=== PATIENT | male | born 2000 | race Caucasian/White ===

== ENCOUNTER 2020-10-16 00:09 | Emergency (ER) | payer OTHER ==
[~2020-10-16] VITALS: Ht 180.3 cm; Wt 68.2 kg
[2020-10-16 00:14] VITALS: TEMP 98.3
[2020-10-16] MEDS ORDERED: TYLENOL 325MG325 MG PO (01:21)
[2020-10-16 01:36] VITALS: BP 134/92; PULSE 87
== END 2020-10-16 01:36 | disposition home or self-care (01) ==
LOC: COL.ER 00:09
DX: S52.124A Nondisplaced fracture of head of right radius, initial encounter for closed fracture (principal); W06.XXXA Fall from bed, initial encounter